=== PATIENT | female | born 1960 | race Caucasian/White ===

== ENCOUNTER 2019-09-16 08:14 | Emergency (ER) | payer BC ==
[~2019-09-16] VITALS: Ht 167.6 cm; Wt 90.9 kg
[2019-09-16 08:51] LABS: COLLECTION METHOD CLEAN CATCH
[2019-09-16 08:59] LABS: BASO % 0.3 % (0.0-2.0); EOS # 0.1 (0.0-0.7); EOS % 1.1 % (0-4.0); GRAN # 4.1 (1.4-6.5); GRAN % 62.5 % (42.2-75.2); HEMATOCRIT 38.5 % (37.0-47.0); HEMOGLOBIN 12.2 g/dl (12.5-16.0); LYMPH # 1.9 (1.2-3.4); LYMPH % 28.7 % (20.0-51.0); MEAN CELL VOLUME 80 fl (80.0-100.0); MEAN CORPUSCULAR HEMOGLOBIN 25 pg (27.0-31.0); MEAN CORPUSCULAR HGB CONC 32 g/dl (33.0-37.0); MEAN PLATELET VOLUME 10.7 fl (7.4-10.4); MONO # 0.5 (0.1-0.6); MONO % 7.2 % (1.7-9.3); PLATELET COUNT 257 K/mm3 (130-400); RED BLOOD COUNT 4.83 M/mm3 (4.10-5.30); REDCELL DISTRIBUTION WIDTH-CV 18.6 % (11.5-14.5)
[2019-09-16 09:07] LABS: MUCOUS Present /lpf; PH 5 (5-8); SQUAMOUS EPITHELIAL 0-2 /hpf; URINE APPEARANCE Hazy; URINE BACTERIA None Seen /hpf; URINE BILIRUBIN Negative (NEGATIVE); URINE BLOOD Negative (NEGATIVE); URINE COLOR Yellow; URINE GLUCOSE Negative (NEGATIVE); URINE KETONE 1+ (NEGATIVE); URINE LEUKOCYTE ESTERASE Negative (NEGATIVE); URINE NITRATE Negative (NEGATIVE); URINE PROTEIN(semi-quant) 1+ (NEGATIVE); URINE RBC 0-2 /hpf
[2019-09-16 09:08] LABS: ALANINE AMINOTRANSFERASE 10 U/L (9-52); ALBUMIN 4.4 gm/dL (3.5-5.0); ALKALINE PHOSPHATASE 69 U/L (50-136); ANION GAP 11 mmol/L (7-16); AST,SGOT 21 U/L (15-37); BLOOD UREA NITROGEN 12 mg/dL (7-17); C-REACTIVE PROTEIN < 0.5 mg/dL (0.0-0.9); CALCIUM 9.7 mg/dL (8.4-10.2); CARBON DIOXIDE 25 mmol/L (22-30); CHLORIDE 104 mmol/L (98-107); CREATININE, serum 0.64 (0.52-1.25); GLUCOSE 102 mg/dL (74-106); LIPASE 156 U/L (23-300); POTASSIUM 3.7 mmol/L (3.4-5.0); SODIUM 140 mmol/L (137-145); TOTAL PROTEIN 7.8 gm/dL (6.4-8.2)
[2019-09-16] MEDS ORDERED: NORCO 325 MG-51 TAB PO (10:28)
[2019-09-16] MEDS ORDERED: ZOFRAN ODT4 MG PO (10:28)
[2019-09-16 10:40] VITALS: BP 132/71; PULSE 56; TEMP 97.9
== END 2019-09-16 10:40 | disposition home or self-care (01) ==
LOC: COL.ER 08:14
PROVIDERS: Nurse Practitioner
DX: R10.11 Right upper quadrant pain (principal); Z90.89 Acquired absence of other organs; Z98.890 Other specified postprocedural states; Z98.84 Bariatric surgery status
CPT/HCPCS: J2270; J2405; J7030; Q9967